=== PATIENT | female | born 1990 | race Caucasian/White ===

== ENCOUNTER 2017-05-14 06:29 | Outpatient (CLI) | payer OTHER | END 2017-05-14 06:30 | disposition home or self-care (01) | LOC: LAB 06:29 | PROVIDERS: ATTEND Surgery | DX: Z53.9 Procedure and treatment not carried out, unspecified reason (principal) ==

== ENCOUNTER 2017-05-14 08:00 | Outpatient (CLI) | payer OTHER ==
[2017-05-14 13:07] LABS: BASOPHILS # (AUTO) 0.1 10^3/uL (0.0-0.1); BASOPHILS % (AUTO) 0.7 %; EOSINOPHILS # (AUTO) 0.2 10^3/uL (0.0-0.7); EOSINOPHILS % (AUTO) 1.5 %; HGB - HEMOGLOBIN 12.8 g/dL (12.0-16.0); LYMPHOCYTES # (AUTO) 2.4 10^3/uL (1.5-3.5); LYMPHOCYTES % (AUTO) 19.2 %; MEAN CORPUSCULAR HEMOGLOBIN 28.3 pg (27.0-31.0); MEAN CORPUSCULAR HGB CONC 33.6 g/dL (32.0-36.0); MEAN CORPUSCULAR VOLUME 84.2 fL (81.0-99.0); MEAN PLATELET VOLUME 9.5 fL (7.9-10.8); MONOCYTES # (AUTO) 0.7 10^3/uL (0.0-1.0); MONOCYTES % (AUTO) 5.8 %; NEUTROPHILS # (AUTO) 9.2 10^3/uL (1.5-6.6); NEUTROPHILS % (AUTO) 72.8 %; PLT - PLATELET COUNT 294 10^3/uL (130-450); RED BLOOD COUNT 4.52 10^6/uL (4.20-5.40); RED CELL DISTRIBUTION WIDTH 13.3 % (12.0-15.0); WHITE BLOOD COUNT 12.6 x10^3/uL (4.8-10.8)
[2017-05-14 13:08] LABS: BUN - BLOOD UREA NITROGEN 11 mg/dL (6-20); CARBON DIOXIDE - CO2 23 mmol/L (21-32); CHLORIDE 108 mmol/L (101-111); CREATININE 0.7 mg/dL (0.4-1.0); GFR - MDRD 100 (>89); GLUCOSE 94 mg/dL (70-100); SODIUM 136 mmol/L (135-145)
== END 2017-05-14 08:01 | disposition home or self-care (01) ==
LOC: LAB.N 08:00
PROVIDERS: ATTEND Physician Assistant Medical
DX: E28.2 Polycystic ovarian syndrome (principal)
CPT/HCPCS: 36415; 80048; 84443; 85025

== ENCOUNTER 2017-12-04 08:00 | Outpatient (CLI) | payer OTHER | END 2017-12-04 08:01 | disposition home or self-care (01) | LOC: LAB.R 08:00 | PROVIDERS: ATTEND Registered Nurse | DX: Z30.430 Encounter for insertion of intrauterine contraceptive device (principal) | CPT/HCPCS: 87491; 87591 ==

== ENCOUNTER 2020-12-28 07:00 | Outpatient (CLI) | payer BC, OTHER | END 2020-12-28 23:59 | disposition home or self-care (01) | LOC: COV 07:00 | PROVIDERS: ATTEND Family Medicine | DX: R05.8 Other specified cough (principal); Z20.822 Contact with and (suspected) exposure to COVID-19 ==

== ENCOUNTER 2023-06-29 14:35 | Emergency (ER) | payer BC, OTHER ==
[2023-06-29 14:41] VITALS: BP 124/75; O2SAT 99
--- NOTE | 2023-06-29 14:46 | ED Physician Documentation ---
PD HPI UPPER EXT INJURY - Stated complaint Stated Complaint: LT ARM INJ - Chief complaint Chief Complaint: Trauma Ext - History obtained from History obtained from: Patient - History of Present Illness Location: Forearm, Wrist Type of injury: Blunt / blow (chicken coop wooden framed door fell onto her forearm with pain locally, worse with wrist movement and ROM.) Where injury occurred: Home Timing - onset: How many hours ago (3), Today Timing - duration: Hours (3) Timing - details: Abrupt onset, Still present Review of Systems Skin: denies: Abrasion (s), Laceration (s) Neurologic: denies: Focal weakness, Numbness PD PAST MEDICAL HISTORY - Past Medical History Past Medical History: Yes Psych: Depression, Anxiety - Past Surgical History Past Surgical History: No - Present Medications Home Medications: Ambulatory Orders Medication Instructions Recorded Confirmed Escitalopram Oxalate 5 mg PO DAILY 06/29/23 06/29/23 buPROPion HCL [Wellbutrin Xl] 300 mg PO DAILY 06/29/23 06/29/23 cloNIDine HCL [Clonidine HCl] 0.2 mg ORAL DAILY 06/29/23 06/29/23 - Allergies Allergies/Adverse Reactions: Allergies Allergy/AdvReac Type Severity Reaction Status Date / Time No Known Drug Allergies Allergy Verified 06/29/23 14:38 - Social History Does the pt smoke?: No Smoking Status: Never smoker Does the pt drink ETOH?: Yes Does the pt have substance abuse?: No - Immunizations Immunizations are current?: Yes - POLST Patient has POLST: No PD ED PE NORMAL - Vitals Vital signs reviewed: Yes - General General: Alert and oriented X 3, No acute distress, Well developed/nourished - Derm Derm: Normal color, Warm and dry - Extremities Extremities: Other (left forearm with tednerness focally at distal bony shaft areas. No noted deformity. Pain with palpation and movement. ) - Neuro Neuro: No motor deficit, No sensory deficit Results - Vitals Vitals: Vital Signs - 24 hr 06/29/23 14:38 Temperature 36.8 C Heart Rate 65 Respiratory 16 Rate Blood Pressure 124/75 O2 Saturation 99 Oxygen O2 Source Room air - Rads (name of study) left forearm Relevant Findings:: Prelim report reviewed, EMP independent interpretation of test (no fractures/bony abnormalities. ) PD Medical Decision Making - ED course Complexity details: reviewed results (no fractures; hyurts with ROM of the wrist mostly but also supination/pronation. Can help discomfort and improve function with wrist splint. ), considered differential (direct impact injury to distal forearm with pain on ROM. Clinically not gross fracture, but consider hairline/ulnar fracvture and feel xray is appropriate. ), d/w patient Departure - Departure Disposition: 01 Home, Self Care Clinical Impression: Forearm contusion Condition: Stable Record reviewed to determine appropriate education?: Yes Instructions: ED Contusion Upper Ext Follow-Up: OLIVER FRAZIER CNM [Primary Care Provider] - Comments: Your x-ray appears normal without any signs of fractures or bony injury. Obviously soft tissue injury in your muscle movement will be sore for likely several days or so. Use the wrist splint to help guard that motion while it is healing. You do not have to have that on all the time. Ice elevate and rest your injured area often through the day today. Tylenol ibuprofen if needed for pains. I would dissipate improvement over the next few days. Activity as tolerated. Forms: PCP List Discharge Date/Time: 06/29/23 15:11
--- NOTE | 2023-06-29 16:01 | XRAY Report ---
PROCEDURE: Wrist 3+V LT INDICATIONS: pain TECHNIQUE: 3 views of the wrist were acquired. COMPARISON: None FINDINGS: Bones: No fractures or dislocations. No suspicious bony lesions. Incidental small left radial osteo ma Soft tissues: No suspicious soft tissue calcifications or masses. IMPRESSION: No fracture or foreign body Reviewed by: Jesse Tyson MD on 06/29/2023 2:59 PM [facility] Approved by: Jesse Tyson MD on 06/29/2023 2:59 PM [facility] Station ID: [id number]
== END 2023-06-29 15:11 | disposition home or self-care (01) ==
LOC: ED 14:35
DX: S50.12XA Contusion of left forearm, initial encounter (principal); W20.8XXA Other cause of strike by thrown, projected or falling object, initial encounter
CPT/HCPCS: 99283